=== PATIENT | male | born 1990 | race Caucasian/White ===

== ENCOUNTER 2019-03-18 07:36 | Emergency (ER) | payer SELFPAY ==
[~2019-03-18] VITALS: Ht 182.9 cm; Wt 104.3 kg
[2019-03-18] MEDS ORDERED: KETOROLAC 60 MG/2 ML VIAL IM ONE (08:00)
[2019-03-18] MEDS ORDERED: ACETAMINOPHEN 500 MG TAB (TYLENOL) PO ONE (08:00)
[2019-03-18] MEDS ORDERED: ORPHENADRINE 60 MG/2 ML (NORFLEX) AMP IM ONE (08:00)
[2019-03-18] MEDS ORDERED: CYCLOBENZAPRINE 10 MG (FLEXERIL) TAB ONE (08:08)
--- NOTE | 2019-03-18 08:09 | ED Back Pain ---
General Chief Complaint: Back Problems Stated Complaint: BACK PAIN History of Present Illness Date Seen by Provider: March 18, 2019 Time Seen by Provider: 07:59 Initial Comments The patient is a 29-year-old male with a history of chronic radicular back pain with right-sided leg involvement, who has been told he needs surgery for protruding disks in his low back but has not had an opportunity to address this yet, who presents with concern for acute onset of low back pain radiating down his right leg which he states is the same pain he typically has at times. He states pain had onset yesterday when he stepped backward wrong and felt sudden shooting pain. He has tried ibuprofen without complete relief of symptoms. He denies fevers, nausea or vomiting, abdominal pain, urinary symptoms, loss of bowel or bladder control, saddle anesthesia, new lower extremity weakness, numbness, tingling, no urinary retention, use of intravenous drugs. Patient is ambulatory in the emergency department with a narrow, steady gait although is having some discomfort as he walks. Allergies and Home Medications Allergies Coded Allergies: No Known Drug Allergies (Unverified , 03/18/19) Patient Home Medication List Home Medication List Reviewed: Yes Review of Systems Constitutional: no symptoms reported, see HPI All Other Systems Reviewed Negative Unless Noted: Yes (Negative excepted noted.) Past Ituvhxy-Nztsmk-Ebrrim Hx Past Med/Social Hx: Reviewed Nursing Past Med/Soc Hx Family Medical History Reviewed Nursing Family Hx Physical Exam Vital Signs Vital Signs - First Documented 03/18/19 07:45 Temp 98.6 Pulse 80 Resp 16 B/P (MAP) 115/93 (100) Pulse Ox 100 O2 Delivery Room Air Capillary Refill : Height, Weight, BMI Height: '" Weight: lbs. oz. kg; BMI Method: General Appearance: No Apparent Distress This is an alert male appearing nontoxic and in no acute distress. Head is normocephalic and atraumatic. Neck is supple and nontender. Oropharynx is moist. Lungs are clear to auscultation at all stations. There is normal S1 and S2 without rubs or gallops capillary refill is appropriate, less than 2 seconds globally. Abdomen is soft, nontender and nondistended. Skin is warm and dry without cyanosis, clubbing or edema. Psychiatrically, the patient indicates appropriate mood and affect is alert. From a musculoskeletal standpoint, examina tion of the low back reveals no erythema, warmth, swelling, step-offs or deformities. There is mild tenderness to the midline low lumbar back as well as bilateral paraspinal musculature, worse on the right. There is no joint irritability with evaluation of the right lower extremity. There is positive straight leg raise on the right. The right lower extremity is neurovascularly intact with strength 5 out 5, sensation to light touch in all instructions, DP and PT pulses 2+, capillary refill less than 2 seconds, foot warm and well perfused. Progress/Results/Core Measures Results/Orders My Orders Orders - ELIER HARTMAN MD Ketorolac Injection (Toradol Injection) (03/18/19 08:00) Acetaminophen Tablet (Tylenol Tablet) (03/18/19 08:00) Cyclobenzaprine Tablet (Flexeril Tablet) (03/18/19 08:08) Cyclobenzaprine Tablet (Flexeril Tablet) (03/18/19 08:15) Morphine Injection (Morphine Injection (03/18/19 08:27) Medications Given in ED Current Medications Medications Dose Ordered Sig/Renee Route Start Time Stop Time Status Last Admin Dose Admin Acetaminophen 1,000 mg ONCE ONCE PO 03/18/19 08:00 03/18/19 08:01 DC 03/18/19 08:14 1,000 MG Cyclobenzaprine HCl 10 mg STK-MED ONCE .ROUTE 03/18/19 08:08 03/18/19 08:13 DC 03/18/19 08:14 10 MG Ketorolac Tromethamine 60 mg ONCE ONCE IM 03/18/19 08:00 03/18/19 08:01 DC 03/18/19 08:14 60 MG Vital Signs/I&O 03/18/19 07:45 Temp 98.6 Pulse 80 Resp 16 B/P (MAP) 115/93 (100) Pulse Ox 100 O2 Delivery Room Air Progress Progress Note : Progress Note Clinical examination reassuring. In the male with chronic back pain who presents with acute onset of atraumatic right-sided radicular low back pain without any red flags. We'll treat symptomatically and reevaluate. Likely discharge home with medication management to follow up closely with primary care and with the spinal specialist he already plans to see in the near future. The patient and family understand and agree with the plan of care. Update 0906: The patient is feeling somewhat better after medications as per nursing flow sheet and has been able to ambulate without difficulty here in the emergency department. He understands that fixing his chronic back discomfort is going to be a process and would like to go home with some medication to further help as well as a work note. As above noted, no symptoms of cord compression necessitating emergent testing or treatment at this time so we will proceed with discharge home as per the patient's request. We will refer him to spinal clinic at [facility]. The patient understands that if he feels worse or better or develops other new symptoms of concern he should return immediately for reevaluation. All questions are answered. We'll proceed with discharge home at this time. Departure Impression Primary Impression: Lumbar radiculopathy Disposition: HOME, SELF-CARE Condition: Improved Departure-Patient Inst. Patient Instructions: MANAGING YOUR CHRONIC PAIN, Low Back Pain (DC), Radiculopathy (DC) Add. Discharge Instructions: We are referring you to a primary care provider, Jessika Cerna here in [facility]. Please call to set up an initial appointment. Practitioner Eryn can see you in followup to prescribe additional medicines, assess your progress with your back pain and coordinate your referrals to specialists and other follow-on care for your back issues. We are referring you to the [facility] at the [facility]. Please call to set up a close follow-up appointment. As discussed, please return to the emergency department immediately with worsened symptoms or other new concerns. All discharge instructions reviewed with patient and/or family. Voiced understanding. Scripts Methylprednisolone (Medrol) 4 Mg Tab.ds.pk 4 MG PO UD for 6 Days, #21 PKG PER DOSE PACK INSTRUCTIONS Prov: ELIER HARTMAN MD 03/18/19 Naproxen Sodium (Anaprox Ds) 550 Mg Tablet 550 MG PO BID for Back Pain, #60 TAB Prov: ELIER HARTMAN MD 03/18/19 Acetaminophen (Tylenol) 325 Mg Capsule 975 MG PO TID for Back Pain, #60 CAP Prov: ELIER HARTMAN MD 03/18/19 Cyclobenzaprine HCl (Cyclobenzaprine HCl) 10 Mg Tablet 10 MG PO Q8H PRN for SPASMS, #15 TAB 0 Refills Prov: ELIER HARTMAN MD 03/18/19 Work/School Note: Family Work Note, Patient Received Medical Care In the Emergency Department On: March 18, 2019 Patient Will Be Able to Return to Work/School On: March 21, 2019 Patient Restrictions: No restrictions. Local Medical Staff Listing ELIER HARTMAN MD March 18, 2019 08:08
[2019-03-18] MEDS ORDERED: CYCLOBENZAPRINE 10 MG (FLEXERIL) TAB PO SCH (08:15)
[2019-03-18] MEDS ORDERED: morphine INJ 10 MG/ML 1ML (SYR OR VIAL) IM STA (08:27)
[2019-03-18] MEDS ORDERED: ACET325C5 PO (09:16)
[2019-03-18] MEDS ORDERED: METH4TAB PO (09:16)
[2019-03-18] MEDS ORDERED: NAPR-1070 PO (09:16)
[2019-03-18] MEDS ORDERED: CYCL10TA9 PO (09:16)
[2019-03-18] MEDS ORDERED: DEXAMETHASONE 10 MG/ML (DECADRON) 1 ML VIAL IM ONE (09:30)
[2019-03-18 09:31] VITALS: BP 121/69
== END 2019-03-18 09:31 | disposition home or self-care (01) ==
LOC: EDUNIT# 07:36 → ER FS 07:37
DX: M54.16 Radiculopathy, lumbar region (principal); X50.0XXA Overexertion from strenuous movement or load, initial encounter
CPT/HCPCS: 99284